=== PATIENT | male | born 1995 | race African-American/Black ===

== ENCOUNTER 2017-03-28 23:15 | Emergency (ER) | payer BC, MEDICAID ==
[~2017-03-28] VITALS: Ht 162.6 cm; Wt 59.0 kg
[2017-03-29] MEDS ORDERED: IBUPROFEN 600MG TABLET PO STA (03:11)
[2017-03-29] MEDS ORDERED: IBUPROFEN 600MG TABLET PO SCH (03:45)
[2017-03-29 05:59] VITALS: BP 122/61
== END 2017-03-29 07:09 | disposition home or self-care (01) ==
LOC: ER 23:15
DX: S00.83XA Contusion of other part of head, initial encounter (principal); M79.671 Pain in right foot; M79.672 Pain in left foot; J45.909 Unspecified asthma, uncomplicated; Y08.89XA Assault by other specified means, initial encounter; Y93.89 Activity, other specified; Y92.89 Other specified places as the place of occurrence of the external cause; Y99.8 Other external cause status
CPT/HCPCS: 73630; 99284; Z7610

== ENCOUNTER 2017-04-10 21:11 | Emergency (ER) | payer MEDICAID ==
[~2017-04-10] VITALS: Ht 162.6 cm; Wt 55.0 kg
[2017-04-11 03:11] LABS: CLARITY URINE CLEAR (CLEAR); COLOR URINE YELLOW (YELLOW); GLUCOSE URINE NEGATIVE (NEGATIVE); KETONES URINE NEGATIVE (NEGATIVE); LEUKOCYTE ESTERASE URINE NEGATIVE (NEGATIVE); NITRITE URINE NEGATIVE (NEGATIVE); OCCULT BLOOD URINE NEGATIVE (NEGATIVE); PH URINE 6.5 (4.5-8.0); PROTEIN URINE NEGATIVE (NEGATIVE); SPECIFIC GRAVITY URINE 1.009 (1.005-1.030); UROBILINOGEN URINE 0.2 E.U./dL (0.2-1.0)
[2017-04-11 03:36] LABS: HEMATOCRIT. 39.8 % (42.0-52.0); HEMOGLOBIN. 13.8 g/dL (14.0-18.0); MEAN CORPUSCULAR HEMOGLOBIN 29.6 pg (28.0-32.0); MEAN CORPUSCULAR VOLUME 85.5 fL (80.0-94.0); MEAN PLATELET VOLUME 7.5 fl (7.4-10.4); PLATELET 276 x1000/uL (130-400); RED BLOOD CELL COUNT 4.65 mill/uL (4.7-6.1); RED CELL DISTRIBUTION WIDTH 12.8 % (11.6-14.6)
[2017-04-11 03:49] LABS: CARBON DIOXIDE 29 mEq/L (21-32); CHLORIDE 107 mEq/L (98-107); ETHANOL BLOOD < 10 mg/dL
[2017-04-11 04:20] LABS: *AMPHETAMINES SCREEN URINE NEGATIVE (NEGATIVE); *BARBITURATES SCREEN URINE NEGATIVE (NEGATIVE); *BENZODIAZEPINES SCREEN URINE NEGATIVE (NEGATIVE); *COCAINE SCREEN URINE NEGATIVE (NEGATIVE); CANNABINOID URINE SCREEN PRESUMTIVE POSITIVE (NEGATIVE); METHADONE URINE SCREEN NEGATIVE (NEGATIVE); OPIATES URINE SCREEN NEGATIVE (NEGATIVE); PHENCYCLIDINE URINE SCREEN NEGATIVE (NEGATIVE)
[2017-04-11 05:37] LABS: PLATELET ESTIMATE NORMAL
[2017-04-11 09:00] VITALS: BP 112/60
== END 2017-04-11 09:17 | disposition home or self-care (01) ==
LOC: ER 21:11
DX: F12.90 Cannabis use, unspecified, uncomplicated (principal); R10.9 Unspecified abdominal pain
CPT/HCPCS: 36415; 80053; 80305; 81003; 83735; 84132; 85025; 99284; G0482

== ENCOUNTER 2017-04-25 00:23 | Emergency (ER) | payer MEDICAID ==
[~2017-04-25] VITALS: Ht 162.6 cm; Wt 63.0 kg
[2017-04-25 07:35] VITALS: BP 106/74
[2017-04-25] MEDS ORDERED: IBUPROFEN 400MG TABLET PO ONE (08:00)
[2017-04-25 08:13] LABS: CHLORIDE 106 mEq/L (98-107)
[2017-04-25 08:14] LABS: BASOPHILS % 1.6 % (0.0-2.0); EOSINOPHILS % 4.4 % (0.0-5.0); HEMOGLOBIN. 14.1 g/dL (14.0-18.0); LYMPHOCYTES % 33.7 % (20.0-50.0); MEAN CORPUSCULAR HEMOGLOBIN 29.4 pg (28.0-32.0); MEAN CORPUSCULAR VOLUME 87.9 fL (80.0-94.0); MONOCYTES % 12.1 % (2.0-8.0); NEUTROPHILS % 48.2 % (40.0-76.0); PLATELET 223 x1000/uL (130-400); RED BLOOD CELL COUNT 4.78 mill/uL (4.7-6.1); RED CELL DISTRIBUTION WIDTH 13.4 % (11.6-14.6)
[2017-04-25 08:18] LABS: CARBON DIOXIDE 27 mEq/L (21-32)
== END 2017-04-25 09:22 | disposition left against medical advice (07) ==
LOC: ER 00:24
DX: R07.9 Chest pain, unspecified (principal); R50.9 Fever, unspecified; R05 Cough; M54.9 Dorsalgia, unspecified
CPT/HCPCS: 36415; 80053; 85025; 99284

== ENCOUNTER 2017-05-07 15:05 | Emergency (ER) | payer MEDICAID ==
[~2017-05-07] VITALS: Ht 160 cm; Wt 59.0 kg
[2017-05-07 15:09] VITALS: BP 134/62
== END 2017-05-07 17:30 | disposition left against medical advice (07) ==
LOC: ER 15:06
DX: R51 Headache (principal); M79.89 Other specified soft tissue disorders; Z53.21 Procedure and treatment not carried out due to patient leaving prior to being seen by health care provider

== ENCOUNTER 2017-05-08 01:59 | Emergency (ER) | payer MEDICAID ==
[~2017-05-08] VITALS: Ht 162.6 cm; Wt 64.0 kg
[2017-05-08] MEDS ORDERED: ACETAMINOPHEN WITH CODEINE 300/30MG TABLET PO ONE (03:00)
[2017-05-08 03:35] VITALS: BP 124/77
== END 2017-05-08 03:40 | disposition home or self-care (01) ==
LOC: ER 01:59
DX: L02.01 Cutaneous abscess of face (principal); F17.210 Nicotine dependence, cigarettes, uncomplicated
CPT/HCPCS: 99283

== ENCOUNTER 2017-05-08 04:07 | Emergency (ER) | payer MEDICAID | END 2017-05-08 04:40 | disposition left against medical advice (07) | LOC: ER 04:30 | DX: Z53.21 Procedure and treatment not carried out due to patient leaving prior to being seen by health care provider (principal) ==

== ENCOUNTER 2017-08-18 17:20 | Emergency (ER) | payer MEDICAID ==
[~2017-08-18] VITALS: Ht 160 cm; Wt 65.0 kg
[2017-08-19 06:25] VITALS: BP 130/72
[2017-08-19 06:49] LABS: CLARITY URINE CLEAR (CLEAR); COLOR URINE YELLOW (YELLOW); KETONES URINE NEGATIVE (NEGATIVE); LEUKOCYTE ESTERASE URINE NEGATIVE (NEGATIVE); NITRITE URINE NEGATIVE (NEGATIVE); OCCULT BLOOD URINE NEGATIVE (NEGATIVE); PH URINE 5.5 (4.5-8.0); PROTEIN URINE NEGATIVE (NEGATIVE); SPECIFIC GRAVITY URINE 1.015 (1.005-1.030); UROBILINOGEN URINE 0.2 E.U./dL (0.2-1.0)
[2017-08-19 07:12] LABS: OPIATES URINE SCREEN NEGATIVE (NEGATIVE)
[2017-08-19 07:23] LABS: *AMPHETAMINES SCREEN URINE NEGATIVE (NEGATIVE); CANNABINOID URINE SCREEN PRESUMTIVE POSITIVE (NEGATIVE); METHADONE URINE SCREEN NEGATIVE (NEGATIVE); PHENCYCLIDINE URINE SCREEN NEGATIVE (NEGATIVE)
[2017-08-19 07:36] LABS: HEMATOCRIT. 42.2 % (42.0-52.0); HEMOGLOBIN. 14.2 g/dL (14.0-18.0); MEAN CORPUSCULAR HEMOGLOBIN 29.5 pg (28.0-32.0); MEAN CORPUSCULAR VOLUME 87.9 fL (80.0-94.0); MEAN PLATELET VOLUME 7.5 fl (7.4-10.4); PLATELET 264 x1000/uL (130-400); RED CELL DISTRIBUTION WIDTH 12.9 % (11.6-14.6)
[2017-08-19 07:47] LABS: CARBON DIOXIDE 30 mEq/L (21-32); CHLORIDE 104 mEq/L (98-107); ETHANOL BLOOD < 10 mg/dL; TROPONIN I < 0.02 ng/mL (0.00-0.04)
[2017-08-19 07:55] LABS: *BARBITURATES SCREEN URINE NEGATIVE (NEGATIVE); *BENZODIAZEPINES SCREEN URINE NEGATIVE (NEGATIVE); *COCAINE SCREEN URINE NEGATIVE (NEGATIVE)
[2017-08-19 08:10] LABS: PLATELET ESTIMATE NORMAL
== END 2017-08-19 10:04 | disposition home or self-care (01) ==
LOC: ER 18:13
DX: R59.0 Localized enlarged lymph nodes (principal); M79.1 Myalgia; F12.10 Cannabis abuse, uncomplicated; S80.812A Abrasion, left lower leg, initial encounter; I10 Essential (primary) hypertension; F12.90 Cannabis use, unspecified, uncomplicated; F17.210 Nicotine dependence, cigarettes, uncomplicated; Z21 Asymptomatic human immunodeficiency virus [HIV] infection status; X58.XXXA Exposure to other specified factors, initial encounter; Y93.89 Activity, other specified; Y92.89 Other specified places as the place of occurrence of the external cause
CPT/HCPCS: 36415; 71045; 80053; 80305; 81003; 84484; 85025; 93005; 99285; G0482